=== PATIENT | female | born 1955 | race Caucasian/White ===

== ENCOUNTER 2021-04-23 15:21 | Emergency (ER) | payer BC, OTHER ==
[2021-04-23 16:01] VITALS: BP 93/56; PULSE 83; TEMP 98.3; BMI 26.1
== END 2021-04-23 18:21 | disposition home or self-care (01) ==
LOC: FER 15:21
PROC: 2W3RX1Z Immobilization of Left Lower Leg using Splint (ICD-10-PCS; principal; 2021-04-23)
DX: S82.92XA Unspecified fracture of left lower leg, initial encounter for closed fracture (principal)
CPT/HCPCS: 29515; 73562-TC-LT-FY; 73610-TC-LT-FY; 73630-TC-LT; 99284-25